=== PATIENT | male | born 1935 | race Caucasian/White ===

== ENCOUNTER → 2017-01-16 | Outpatient (CLI) | payer MEDICARE, BC ==
[2017-01-16 09:56] LABS: BLOOD UREA NITROGEN 13 mg/dL (7-18)
[2017-01-16 10:21] LABS: HIV 1&2 ANTIBODY SCREEN Nonreactive (Nonreactive); HIV-1 p24 ANTIGEN Nonreactive (Nonreactive)
== END | disposition home or self-care (01) ==
LOC: STAR 08:18
PROVIDERS: ATTEND Orthopaedic Surgery
DX: Z01.818 Encounter for other preprocedural examination (principal); M17.12 Unilateral primary osteoarthritis, left knee; R79.1 Abnormal coagulation profile
CPT/HCPCS: 36415; 80048; 83036; 85025; 85610; 85730; 86703; 87081; 87899; 93005; G0435

== ENCOUNTER 2017-01-28 08:30 | Inpatient (IN) | payer MEDICARE, BC ==
[~2017-01-28] VITALS: Ht 177.8 cm; Wt 83.6 kg
[~2017-01-28 08:30] MED LIST: ACYC-57 PO; ASPI-496 PO; BUPIVACAINE/PF 0.25% ONE; CELE200C PO; CHOL20003 PO; FEXO1TAB29 PO; GLUC1CAP38 PO; Iron PO; LATA2.5D3 EACHEYE; LOPE2CAP94 PO; MULT-412 PO; SIMV20TA3 PO; TAMS-11 PO; UREA198C TP
[2017-01-28] MEDS ORDERED: ROPIvacaine/PF 0.2%, 20 ML ONE (12:58)
[2017-01-28] MEDS ORDERED: KETOROLAC 60 MG/2 ML ONE (12:58)
[2017-01-28] MEDS ORDERED: TRANEXAMIC ACID 100 MG/ML, 10ML ONE ×4 (12:59→15:04)
[2017-01-28] MEDS ORDERED: SODIUM CHLORIDE 0.9% 50 ML ONE (12:59)
[2017-01-28] MEDS ORDERED: EPINEPHRINE 1 MG/ML, 1ML ONE (12:59)
[2017-01-28] MEDS ORDERED: VANCOMYCIN PER PHARMACY MC PRN (13:00)
[2017-01-28] MEDS ORDERED: LACTATED RINGERS 1,000 ML IV SCH (13:30)
[2017-01-28] MEDS ORDERED: GABAPENTIN 300 MG CAPSULE PO ONE (13:30)
[2017-01-28] MEDS ORDERED: ACETAMINOPHEN 500 MG TABLET PO ONE (13:30)
[2017-01-28] MEDS ORDERED: OxyconTIN ER 10 MG TAB.ER PO ONE (13:30)
[2017-01-28] MEDS ORDERED: VANCOMYCIN 1,700 MG in SODIUM CHLORIDE 0.9% 250 ML IV ONE (13:30)
[2017-01-28 14:00] VITALS: BP 116/67
[2017-01-28] MEDS ORDERED: FENTANYL PF 250 MCG/5ML ONE (14:40)
[2017-01-28] MEDS ORDERED: MIDAZOLAM 1 MG/ML, 2ML ONE (14:40)
[2017-01-28] MEDS ORDERED: PROPOFOL 10 MG/ML, 20ML ONE (15:35)
[2017-01-28] MEDS ORDERED: DEXAMETHASONE 4 MG/ML, 1ML ONE (15:35)
[2017-01-28] MEDS ORDERED: ONDANSETRON 2MG/ML, 2ML ONE (15:35)
[2017-01-28] MEDS ORDERED: CEFAZOLIN 1,000 MG ONE (15:35)
[2017-01-28] MEDS ORDERED: ONDANSETRON 2MG/ML, 2ML IVPush PRN (17:00)
[2017-01-28] MEDS ORDERED: EPHEDRINE 50 MG/ML, 1ML IVPush PRN (17:00)
[2017-01-28] MEDS ORDERED: METOPROLOL 1 MG/ML, 5ML IV PRN (17:00)
[2017-01-28] MEDS ORDERED: LABETALOL 5MG/ML, 20ML IV PRN (17:00)
[2017-01-28] MEDS ORDERED: PROMETHAZINE 25 MG/ML, 1ML IV PRN (17:00)
[2017-01-28] MEDS ORDERED: HYDROmorphone 1 MG/ML, 1ML IV PRN ×2 (17:00→18:00)
[2017-01-28] MEDS ORDERED: FENTANYL PF 100 MCG/2ML IV PRN (17:00)
[2017-01-28] MEDS ORDERED: hydrALAzine 20 MG/ML, 1ML IV PRN (17:00)
[2017-01-28] MEDS ORDERED: OXYcodone 5 MG/5 ML ORAL.SOL UDC PO PRN (17:00)
[2017-01-28] MEDS ORDERED: ACETAMINOPHEN 325 MG TABLET PO PRN (17:00)
[2017-01-28] MEDS ORDERED: ALBUTEROL SULFATE 2.5 MG/3 ML NPPB PRN (17:00)
[2017-01-28] MEDS ORDERED: SENNA/DOCUSATE TABLET PO PRN (18:00)
[2017-01-28] MEDS: HYDROcodone/APAP 10/325 MG TABLET PO SCH ×2 (18:00→23:46)
[2017-01-28] MEDS ORDERED: OXYcodone IR 5MG TABLET PO PRN (18:00)
[2017-01-28] MEDS ORDERED: PROMETHAZINE 25 MG/ML, 1ML IM PRN (18:00)
[2017-01-28] MEDS ORDERED: DIPHENHYDRAMINE 50 MG CAPSULE PO PRN (18:00)
[2017-01-28] MEDS ORDERED: BISACODYL 10 MG SUPP PR PRN (18:00)
[2017-01-28] MEDS ORDERED: ONDANSETRON 2MG/ML, 2ML IV PRN (18:00)
[2017-01-28] MEDS ORDERED: HYDROcodone/APAP 10/325 MG TABLET PO PRN (18:00)
[2017-01-28] MEDS ORDERED: ONDANSETRON 4 MG TABLET PO PRN (18:00)
[2017-01-28] MEDS ORDERED: ACETAMINOPHEN 650 MG/20.3 ML UDC PO PRN (18:00)
[2017-01-28] MEDS ORDERED: ALUMINUM/MAG/SIMETHICONE 30 ML UDC PO PRN (18:00)
[2017-01-28] MEDS ORDERED: PROMETHAZINE 12.5 MG SUPP PR PRN (18:00)
[2017-01-28] MEDS ORDERED: MAGNESIUM HYDROXIDE 8%, 30ML UDC PO PRN (18:00)
[2017-01-28] MEDS ORDERED: OXYcodone 5 MG/5 ML ORAL.SOL UDC ONE (18:55)
[2017-01-28] MEDS: [UNRECOGNIZED DRUG - REMARK] MC SCH (22:00)
[2017-01-28] MEDS ORDERED: LORATADINE 10 MG TABLET PO PRN (22:00)
[2017-01-28] MEDS: [UNRECOGNIZED DRUG - REMARK] MC SCH (22:00)
[2017-01-28] MEDS ORDERED: LOPERAMIDE 2 MG CAPSULE PO PRN (22:00)
[2017-01-28] MEDS: D5%-0.45% NACL 1,000 ML IV SCH (23:30)
[2017-01-28] MEDS: CEFAZOLIN PMX 2GM/50ML 50 ML IVPB SCH (23:41)
[2017-01-28] MEDS: DOCUSATE 100 MG CAPSULE PO SCH (23:44)
[2017-01-28] MEDS: TAMSULOSIN 0.4 MG CAP.ER.24H PO SCH (23:47)
[2017-01-28 23:55] VITALS: BP 129/70
[2017-01-29] MEDS: D5%-0.45% NACL 1,000 ML IV SCH ×2 (01:56→09:56)
[2017-01-29] MEDS: HYDROcodone/APAP 10/325 MG TABLET PO SCH ×3 (02:00→10:00)
[2017-01-29 02:47] VITALS: BP 112/69
[2017-01-29] MEDS ORDERED: DEXAMETHASONE 4 MG/ML, 1ML IVPush SCH (06:00)
[2017-01-29] MEDS ORDERED: RIVAROXABAN 10 MG TABLET PO SCH (06:00)
[2017-01-29] MEDS: CEFAZOLIN PMX 2GM/50ML 50 ML IVPB SCH (07:11)
[2017-01-29] MEDS: [UNRECOGNIZED DRUG - REMARK] MC SCH (07:13)
[2017-01-29] MEDS: [UNRECOGNIZED DRUG - REMARK] MC SCH (07:13)
[2017-01-29 07:50] VITALS: BP 102/54
[2017-01-29] MEDS: DOCUSATE 100 MG CAPSULE PO SCH (08:39)
[2017-01-29] MEDS: TAMSULOSIN 0.4 MG CAP.ER.24H PO SCH (08:40)
[2017-01-29] MEDS ORDERED: [UNRECOGNIZED DRUG - OTHER] HOMEMEDPO SCH (09:00)
[2017-01-29] MEDS ORDERED: IRON 65MG HOMEMEDPO SCH (09:00)
[2017-01-29] MEDS ORDERED: MULTIVITAMINS/MINERALS TABLET PO SCH ×2 (09:00)
[2017-01-29] MEDS ORDERED: GLUCOSAMINE HOMEMEDPO SCH (09:00)
[2017-01-29] MEDS ORDERED: OXYC5CAP4 PO (12:19)
[2017-01-29] MEDS ORDERED: TRAM50TA2 PO (12:20)
[2017-01-29] MEDS ORDERED: RIVA10TA PO (12:21)
[2017-01-29] MEDS ORDERED: DIAZ5TAB PO (12:21)
[2017-01-29] MEDS ORDERED: DOCU-30 PO (12:22)
[2017-01-29] MEDS ORDERED: ACET-1600 PO (12:22)
[2017-01-29] MEDS ORDERED: KETOROLAC 30 MG/1 ML IV SCH (18:00)
[2017-01-29] MEDS ORDERED: CHOLECALCIFEROL 1,000 UNIT TABLET PO SCH (21:00)
[2017-01-29] MEDS ORDERED: LATANOPROST OPHTH 0.005%, 2.5ML OP SCH (21:00)
[2017-01-29] MEDS ORDERED: SIMVASTATIN 20 MG TABLET PO SCH (21:00)
== END 2017-01-29 12:55 | disposition home or self-care (01) | DRG 470 ==
LOC: ORIP 12:43 → 4NOR 20:13 → DCLOUNGE 01-29 12:13
PROVIDERS: ADMIT Orthopaedic Surgery; ATTEND Orthopaedic Surgery
PROC: 0SRD0J9 Replacement of Left Knee Joint with Synthetic Substitute, Cemented, Open Approach (ICD-10-PCS; principal; 2017-01-29)
DX: M17.12 Unilateral primary osteoarthritis, left knee (principal); M71.20 Synovial cyst of popliteal space [Baker], unspecified knee; M21.062 Valgus deformity, not elsewhere classified, left knee
CPT/HCPCS: 36415; 85014; 85018; C1713; J0171; J0690; J1100; J1885; J2250; J2405; J2704; J2795; J3010; J3370; J3490; C1776; J7050; J7120

== ENCOUNTER → 2017-04-22 | Outpatient (CLI) | payer MEDICARE, BC ==
[~2017-04-22] MED LIST changes: +ACET-1600 PO; +ASPI-621 PO; -BUPIVACAINE/PF 0.25% ONE; +CHOL2000 PO; -CHOL20003 PO; +DIAZ5TAB PO; +DOCU-30 PO; +FESO8TAB PO; +OXYC5CAP4 PO; +RIVA10TA PO; +TRAM50TA2 PO
[2017-04-22 09:00] LABS: HEMATOCRIT 40.6 % (39.2-51.8); HEMOGLOBIN 13.4 g/dL (13.7-18.0); WHITE BLOOD COUNT 5.7 x10^3/uL (3.4-10)
[2017-04-22 09:11] LABS: BLOOD UREA NITROGEN 12 mg/dL (7-18)
[2017-04-22 09:42] LABS: HIV 1&2 ANTIBODY SCREEN Nonreactive (Nonreactive); HIV-1 p24 ANTIGEN Nonreactive (Nonreactive)
== END | disposition home or self-care (01) ==
LOC: STAR 07:35
PROVIDERS: ATTEND Orthopaedic Surgery
DX: M17.11 Unilateral primary osteoarthritis, right knee (principal); R79.1 Abnormal coagulation profile; R79.89 Other specified abnormal findings of blood chemistry
CPT/HCPCS: 36415; 80048; 81003; 83036; 85025; 85610; 85730; 86703; 87081; 87899; 93005; G0435

== ENCOUNTER 2017-05-06 08:04 | Inpatient (IN) | payer MEDICARE, BC ==
[~2017-05-06] VITALS: Ht 177.8 cm; Wt 84.2 kg
[~2017-05-06 08:04] MED LIST changes: +BUPIVACAINE/PF 0.25% ONE; +DOCU-131 PO; -DOCU-30 PO; +EPINEPHRINE 1 MG/ML, 1ML ONE; +FENTANYL PF 100 MCG/2ML ONE; +KETOROLAC 60 MG/2 ML ONE; +MIDAZOLAM 1 MG/ML, 2ML ONE; +OXYC5CAP2 PO; -OXYC5CAP4 PO; +ROPIvacaine/PF 0.2%, 20 ML ONE; +SODIUM CHLORIDE 0.9% 50 ML ONE; +TRANEXAMIC ACID 100 MG/ML, 10ML ONE; +VANCOMYCIN 1,000 MG ONE
[2017-05-06] MEDS ORDERED: LACTATED RINGERS 1,000 ML IV SCH (08:20)
[2017-05-06] MEDS ORDERED: TRANEXAMIC ACID 100 MG/ML, 10ML ONE (08:21)
[2017-05-06] MEDS ORDERED: VANCOMYCIN PER PHARMACY MC STA (08:21)
[2017-05-06] MEDS ORDERED: OxyconTIN ER 10 MG TAB.ER PO STA (08:25)
[2017-05-06] MEDS ORDERED: ACETAMINOPHEN 500 MG TABLET PO STA (08:27)
[2017-05-06] MEDS ORDERED: GABAPENTIN 300 MG CAPSULE PO STA (08:27)
[2017-05-06] MEDS ORDERED: ACETAMINOPHEN 500 MG TABLET ONE (08:42)
[2017-05-06] MEDS ORDERED: GABAPENTIN 300 MG CAPSULE ONE (08:42)
[2017-05-06] MEDS ORDERED: OxyconTIN ER 10 MG TAB.ER ONE (08:48)
[2017-05-06] MEDS ORDERED: DEXAMETHASONE 4 MG/ML, 1ML ONE (09:22)
[2017-05-06] MEDS ORDERED: PHENYLEPHRINE 10 MG/ML ONE (09:22)
[2017-05-06] MEDS ORDERED: ONDANSETRON 2MG/ML, 2ML ONE (09:22)
[2017-05-06] MEDS ORDERED: CEFAZOLIN 1,000 MG ONE (09:22)
[2017-05-06] MEDS ORDERED: DIPHENHYDRAMINE 50 MG CAPSULE PO PRN (09:30)
[2017-05-06] MEDS ORDERED: HYDROmorphone 1 MG/ML, 1ML IV PRN ×2 (09:30→11:30)
[2017-05-06] MEDS ORDERED: BISACODYL 10 MG SUPP PR PRN (09:30)
[2017-05-06] MEDS ORDERED: ACETAMINOPHEN 650 MG/20.3 ML UDC PO PRN (09:30)
[2017-05-06] MEDS ORDERED: OXYcodone IR 5MG TABLET PO PRN (09:30)
[2017-05-06] MEDS ORDERED: ONDANSETRON 2MG/ML, 2ML IV PRN (09:30)
[2017-05-06] MEDS ORDERED: MAGNESIUM HYDROXIDE 8%, 30ML UDC PO PRN (09:30)
[2017-05-06] MEDS ORDERED: SENNA/DOCUSATE TABLET PO PRN (09:30)
[2017-05-06] MEDS ORDERED: ONDANSETRON 4 MG TABLET PO PRN (09:30)
[2017-05-06] MEDS ORDERED: DIAZEPAM 5 MG TABLET PO PRN (09:30)
[2017-05-06] MEDS: OxyconTIN ER 10 MG TAB.ER PO SCH ×2 (11:00→23:12)
[2017-05-06] MEDS ORDERED: MEPERIDINE/PF 25MG/0.5ML IVPush PRN (11:30)
[2017-05-06] MEDS ORDERED: hydrALAzine 20 MG/ML, 1ML IV PRN (11:30)
[2017-05-06] MEDS ORDERED: FENTANYL PF 100 MCG/2ML IV PRN (11:30)
[2017-05-06] MEDS ORDERED: MIDAZOLAM 1 MG/ML, 2ML IV PRN (11:30)
[2017-05-06] MEDS ORDERED: LABETALOL 5MG/ML, 20ML IV PRN (11:30)
[2017-05-06] MEDS ORDERED: ALBUTEROL/IPRATROPIUM 2.5MG/0.5MG, 3 ML NPPB PRN (11:30)
[2017-05-06] MEDS ORDERED: OXYcodone 5 MG/5 ML ORAL.SOL UDC PO PRN (11:30)
[2017-05-06] MEDS ORDERED: PROMETHAZINE 25 MG/ML, 1ML IV PRN (11:30)
[2017-05-06] MEDS ORDERED: ONDANSETRON 2MG/ML, 2ML IVPush PRN (11:30)
[2017-05-06] MEDS ORDERED: ACETAMINOPHEN 325 MG TABLET PO PRN (11:30)
[2017-05-06] MEDS ORDERED: CEFAZOLIN PMX 1GM/50ML 50 ML IVPB SCH (14:00)
[2017-05-06] MEDS: D5%-0.45NACL+KCL 20MEQ 1,000 ML IV SCH (16:45)
[2017-05-06] MEDS: CEFAZOLIN PMX 1GM/50ML 50 ML IVPB SCH (16:46)
[2017-05-06 20:00] VITALS: BP 95/55
[2017-05-06] MEDS ORDERED: VANCOMYCIN PMX 1GM/200ML 200 ML IVPB ONE (20:30)
[2017-05-06] MEDS ORDERED: SIMVASTATIN 20 MG TABLET PO SCH (21:00)
[2017-05-06] MEDS: LATANOPROST OPHTH 0.005%, 2.5ML EACHEYE SCH ×2 (21:00→23:20)
[2017-05-06] MEDS: DOCUSATE 100 MG CAPSULE PO SCH (22:16)
[2017-05-07 00:34] VITALS: BP 108/53
[2017-05-07] MEDS: CEFAZOLIN PMX 1GM/50ML 50 ML IVPB SCH (01:18)
[2017-05-07 04:50] VITALS: BP 121/67
[2017-05-07] MEDS: D5%-0.45NACL+KCL 20MEQ 1,000 ML IV SCH (05:25)
[2017-05-07 05:47] LABS: HEMATOCRIT 31.9 % (39.2-51.8); HEMOGLOBIN 10.6 g/dL (13.7-18.0)
[2017-05-07] MEDS ORDERED: RIVAROXABAN 10 MG TABLET PO SCH (06:00)
[2017-05-07] MEDS ORDERED: DEXAMETHASONE 4 MG/ML, 1ML IVPush SCH (06:00)
[2017-05-07 07:23] VITALS: BP 97/50
[2017-05-07] MEDS: FERROUS SULFATE 325 MG TABLET PO SCH ×2 (07:56→07:58)
[2017-05-07] MEDS: DOCUSATE 100 MG CAPSULE PO SCH (07:56)
[2017-05-07] MEDS ORDERED: KETOROLAC 30 MG/1 ML IV SCH ×2 (09:30→12:00)
[2017-05-07] MEDS: OxyconTIN ER 10 MG TAB.ER PO SCH (11:04)
[2017-05-07] MEDS ORDERED: DOCU-131 PO (11:18)
[2017-05-07] MEDS ORDERED: ONDA4TAB10 PO (11:19)
[2017-05-07] MEDS ORDERED: TRAM50TA2 PO (11:20)
[2017-05-07] MEDS ORDERED: DIAZ5TAB PO (11:21)
[2017-05-07] MEDS ORDERED: RIVA10TA PO (11:22)
[2017-05-07] MEDS ORDERED: OXYC5CAP2 PO (11:23)
== END 2017-05-07 11:46 | disposition home or self-care (01) | DRG 470 ==
LOC: ORIP 08:04 → 4NOR 13:30 → DCLOUNGE 05-07 11:17
PROVIDERS: ADMIT Orthopaedic Surgery; ATTEND Orthopaedic Surgery
PROC: 0SRC0J9 Replacement of Right Knee Joint with Synthetic Substitute, Cemented, Open Approach (ICD-10-PCS; principal; 2017-05-06 09:30)
DX: M17.11 Unilateral primary osteoarthritis, right knee (principal); Z88.8 Allergy status to other drugs, medicaments and biological substances; Z96.652 Presence of left artificial knee joint
CPT/HCPCS: 36415; 85014; 85018; C1713; J0171; J0690; J1100; J1885; J2250; J2405; J2795; J3010; J3370; J3490; C1776; J2370; J3480; J7120